=== PATIENT | female | born 2000 | race Caucasian/White ===

== ENCOUNTER 2021-07-12 13:22 | Emergency (ER) | payer OTHER, SELFPAY ==
[2021-07-12 13:22] VITALS: BP 127/76; PULSE 99; RESP 16; TEMP 36.6; O2SAT 100; BMI 30.4
--- NOTE | 2021-07-12 13:38 | EX.ED.GENINJ ---
HPI History of Present Illness Chief Complaint: Head Injury Detail of Chief Complaint: Injury that occurred last evening around 7 PM Informant: patient Narrative Narrative: Patient presents to the emergency department with a head injury that occurred last evening around 7 PM. Patient was struck in the head with a paintball from a paintball gun. Patient states that she was wearing some sort of head protection the front part of the head but she got struck to the top of the head and she is unclear from how far away she thinks maybe about 50 feet. She had no loss of consciousness. She did have a little bit of a headache yesterday and some ringing in her left ear. Patient currently just has a minimal headache and just feels little bit foggy. She denies any vomiting. She denies difficulty with balance or speech. PFSH PFS Home Medications bupropion HCl 150 mg PO DAILY 07/12/21 [History Last Taken Unknown] Allergy/AdvReac Type Severity Reaction Status Date / Time No Known Allergies Allergy Verified 07/12/21 13:25 Social History Smoking Status: Never smoker ROS ROS ED Constitutional Constitutional ED: Reports systems reviewed and no addt'l complaints, except as documented; Denies body ache(s), change in weight or chills Eyes Eyes: Denies acute decrease in peripheral vision, change in vision, double vision or loss of vision ENT ENT ED: Reports none; Denies ear pain, lip swelling, loss taste/smell, neck pain, otalgia or sore throat Cardiovascular Cardiovascular: Reports none; Denies abdominal pain, chest pain with activity, leg edema, lightheadedness, palpitations, rapid heart rate or syncope Respiratory/Chest Respiratory/Chest: Reports none; Denies change in mental status, dry cough, dyspnea, hemoptysis, shortness of breath at rest or shortness of breath with exertion Gastrointestinal Gastrointestinal: Reports none; Denies abdominal pain, change in stool character, diarrhea, hematemesis, hematochezia, melena, rectal bleeding or vomiting Genitourinary Genitourinary ED: Reports none; Denies abdominal discomfort, anuria, dysuria, genital pain or polyuria Musculoskeletal Musculoskeletal: Reports none; Denies arthralgias, back pain, difficulty walking, extremity pain, muscle weakness or myalgias Integumentary Reports none; Denies abscess or rash Neurologic Neurologic: Reports none and headache(s); Denies abnormal gait, confusion, focal weakness, frequent falls, loss of vision, numbness, paresthesias, radicular pain, vertigo or weakness Psychiatric Psychiatric: Reports systems reviewed and no addt'l complaints, except as documented and none; Denies behavioral changes, confusion, difficulty concentrating, hallucinations, suicidal ideation, tactile hallucinations or visual hallucinations Endocrine Endocrinology: Denies none, cold intolerance, excessive sweating, fatigue or heat intolerance Hematologic/Lymphatic Hematologic/Lymphatic: Reports none; Denies anemia, easy bleeding or easy bruising Allergic/Immunologic Allergic/Immunologic ED: Denies as per HPI, none, lip swelling, mouth swelling, throat swelling, tongue swelling or hives EXAM Physical Exam Const Vital Signs: 07/12/21 13:22 07/12/21 13:32 Temperature 97.9 F Temperature Source Temporal Pulse Rate 99 Respiratory Rate 16 Respiratory Effort Normal Non-Labored Respiratory Depth Normal Respiratory Pattern Normal Blood Pressure 127/76 H Blood Pressure Mean 93 Pulse Ox 100 Oxygen Delivery Method Room Air Room Air Positive well nourished and well developed General Appearance ED: well developed and NAD HEENT Reports TM's clear and moist mucous membranes HEENT Narrative: No external trauma to her head noted. No hemotympanum. normocephalic and atraumatic; Negative for trauma or tenderness Tympanic Membrane ED: Yes TM's clear Eyes PERRL and EOMs intact bilaterally General Eye ED: Negative for pale conjunctiva or scleral icterus Neck no lymphadenopathy, supple and no JVD General: Negative for tenderness Chest Wall inspection of chest normal and palpation of chest normal Chest: Negative for tenderness Resp normal respiratory effort and clear to auscultation bilaterally Effort and Inspection: Negative for respiratory distress or pain with movement Auscultation: Negative for rhonchi, wheezes or diminished lung sounds Cardio regular rate, regular rhythm, S1 normal heart sound, S2 normal heart sound and no murmurs Peripheral Pulses: pulses 2+ throughout GI normal to inspection, nondistended, normoactive bowel sounds, soft to palpation, non-tender, non-distended and no masses Back/Spine no CVA tenderness and no thoracic nor lumbar tenderness Extremity normal to inspection General Extremety ED: Negative for edema General Extremity: Negative for edema Neuro oriented x3, CN's II-XII intact bilaterally, no sensory deficits noted and gait normal Neuro Narrative: Finger-nose and heel encarnacion testing within normal limits, negative Romberg, negative pronator drift, fundi benign Sensorium / Orientation: awake, alert, oriented to person, oriented to place and oriented to time Motor Exam: strength 5/5 throughout and strength abnormal Psych mental status grossly normal Skin no rashes or lesions noted and no wounds MDM MDM MDM Narrative Medical decision making narrative: Patient presents with a head injury that occurred last evening. There is no indication for imaging. Patient and her mother are comfortable with this. She has a normal neurologic exam. Patient advised to return if worsening headache, difficulty with balance or speech, vomiting, or condition worsen anyway. Patient to follow-up with her primary care physician 3 to 5 days. Discharge Plan Triage Chief Complaint: Head Injury ED Provider: Madeline Arce Dx/Rx/DC Orders Clinical Impression: Closed head injury, Concussion Instructions: ED Concussion Prescriptions: No Action bupropion HCl 150 mg tablet extended release 24 hr 150 mg PO DAILY RF: 0 Primary Care Provider: Abebe Flores Referrals: Abebe Flores MD [Primary Care Provider] - 3-5 Days Disposition Disposition: Home, Self Care
== END 2021-07-12 13:48 | disposition home or self-care (01) ==
LOC: ED 13:43
PROVIDERS: Emergency Provider Emergency Medicine; PCP Pediatrics; Visit Provider Emergency Medicine
DX: S06.0X0A Concussion without loss of consciousness, initial encounter (principal); W20.8XXA Other cause of strike by thrown, projected or falling object, initial encounter; Y93.89 Activity, other specified
CPT/HCPCS: 99282

== ENCOUNTER → 2021-09-03 | Outpatient (CLI) | payer OTHER, SELFPAY ==
--- NOTE | 2021-09-03 15:17 | NEURO ---
NCS and/or EMG Patient Report Ordering Doctor: Vicente Myers DATE OF SERVICE: 09/03/21 Codi presents for electrodiagnostic testing of the left upper limb she reports numbness and tingling in the left hand, mainly the fourth and fifth digits. This developed after typing a paper in college a few months ago. Electrodiagnostic findings: Left median motor nerve demonstrates normal distal latency, amplitude and conduction velocity. Normal left ulnar motor response, including conduction across the elbow. Normal median ulnar F waves. Sensory responses are within normal limits. On needle EMG, all muscles tested in the left upper limb showed no evidence of denervation with normal motor unit action potentials. Electrodiagnostic impression: There is a normal electrodiagnostic study in the left upper limb. There is no electrodiagnostic evidence for peripheral neuropathy, including carpal tunnel or cubital tunnel syndrome.
== END | disposition home or self-care (01) ==
LOC: PSN 14:13
PROVIDERS: PCP Pediatrics; Visit Provider Orthopaedic Surgery
DX: G56.22 Lesion of ulnar nerve, left upper limb (principal)
CPT/HCPCS: 95886; 95910